=== PATIENT | male | born 1960 | race Caucasian/White ===

== ENCOUNTER 2023-05-29 00:12 | Day surgery (SDC) | payer BC, SELFPAY ==
[2023-05-07 15:11] VITALS: BMI 28.4
--- NOTE | 2023-05-27 11:50 | SUR.PREOP ---
Patient called regarding upcoming procedure. Spoke with his . Reviewed preop instructions, appointment times, and procedure prep.
--- NOTE | 2023-05-28 14:44 | P.HP_ITS ---
History of Present Illness History of Present Illness Consent: Risks, benefits, and alternatives have been discussed and questions answered. Patient agrees to proceed with procedure. Chief complaint: neoplasm screening Narrative: Osito Turpin is a 62 year old male Referred for colon cancer screening. Review of Systems Review of Systems: All systems reviewed & are unremarkable except as noted in HPI and below [facility] Social History Social History Smoking status: Never smoker Alcohol intake: current Drinks per week: 4 Substance use: never Substance use type: does not use Living arrangements: with family Spiritual care concerns: No Meds Home Medications and Allergies Home Medications Medication Instructions Recorded Confirmed Type rosuvastatin 10 mg tablet 10 mg PO DAILY 05/07/23 05/29/23 History Allergies Allergy/AdvReac Type Severity Reaction Status Date / Time No Known Allergies Allergy Verified 05/29/23 10:06 Exam Const: General: alert Orientation/consciousness: patient oriented x3 Resp: Auscultation: clear to auscultation bilaterally Cardio: Rhythm: regular rhythm GI: GI Palp: Yes Soft to palpation and No Tenderness to palpation present (GI) Neuro: General: patient oriented x3 Assessment and Plan Assessment and plan (1) Colon cancer screening: Code(s): Z12.11 - Encounter for screening for malignant neoplasm of colon Status: Acute Assessment and Plan: Colonoscopy with possible biopsy or polypectomy or cautery or injection of substances.
[2023-05-29 09:49] VITALS: BP 140/92; PULSE 93; RESP 18; TEMP 36; O2SAT 99
[2023-05-29] MEDS: LACTATED RINGERS 1,000 ML 150 ML IV CONT (10:03)
[2023-05-29 11:14] VITALS: BP 118/68; PULSE 88; RESP 20; O2SAT 98
[2023-05-29 11:24] VITALS: BP 126/83; PULSE 78; RESP 18; O2SAT 98
[2023-05-29 11:34] VITALS: BP 132/84; PULSE 76; RESP 20; O2SAT 99
--- NOTE | 2023-06-15 14:47 | P.PNAN_ITS ---
Anes - Initial Pre Proc Eval Procedure: Operation Date: 05/29/23 11:00 Proposed Procedures p Screening Colonoscopy - Aydin Harding MD Date/Time: 06/15/23 14:47 Surgeon: Aydin Harding MD Pre Op Diagnosis: neoplasm screening Patient Data Age: 62 Gender: M Height: 1.85 m Weight: 96 kg Last Vital Signs Temp 96.8 F L 05/29/23 09:49 Pulse 76 05/29/23 11:34 Resp 20 05/29/23 11:34 BP 132/84 05/29/23 11:34 Pulse Ox 99 05/29/23 11:34 O2 Del Method Room Air 05/29/23 11:34 Allergies Allergy/AdvReac Type Severity Reaction Status Date / Time No Known Allergies Allergy Verified 05/29/23 10:06 Home Medications Medication Instructions Recorded Confirmed Type rosuvastatin 10 mg tablet 10 mg PO DAILY 05/07/23 05/29/23 History Patient hx anesthesia problems: none Family hx anesthesia problems: none Results Review: All pre-operative results and documents have been reviewed as part of the pre- operative evaluation. [facility], [facility] Social History Social History Smoking status: Never smoker Alcohol intake: current Drinks per week: 4 Substance use: never Substance use type: does not use Living arrangements: with family Spiritual care concerns: No Anes - Eval Final PreProcedure Day of Procedure 06/15/23 14:47 Patient weight: normal Heart: regular rate and rhythm Lungs: clear to auscultation Airway: Mallampati scale class II Neurological: alert and oriented Last oral intake: >/= 8 hours ASA classification: II Emergent: no Anesthetic plan: proceed Anesthesia type and monitoring: general GIVS and standard monitoring Results Review: All pre-operative results and documents have been reviewed as part of the pre- operative evaluation. Informed Consent: The patient's anesthetic plan and its attendant risks and benefits were discussed with the patient/family/POA. Questions were solicited and answers provided to the satisfaction of the patient/family/POA.
== END 2023-05-29 11:39 | disposition home or self-care (01) ==
PROVIDERS: PCP Internal Medicine; Visit Provider Internal Medicine Gastroenterology
PROC: 0DJD8ZZ Inspection of Lower Intestinal Tract, Via Natural or Artificial Opening Endoscopic (ICD-10-PCS; CPT 45378; principal; 2023-05-29 11:00)
DX: Z12.11 Encounter for screening for malignant neoplasm of colon (principal); K57.30 Diverticulosis of large intestine without perforation or abscess without bleeding; K64.8 Other hemorrhoids
CPT/HCPCS: 45378; J2704; J7120